=== PATIENT | female | born 1960 | race Caucasian/White ===

== ENCOUNTER 2018-05-31 02:03 | Outpatient (CLI) | payer OTHER, SELFPAY ==
[2018-05-31 07:53] LABS: ALT 32 U/L (12-78); AST 23 U/L (15-37); Albumin 3.9 g/dL (3.4-5.0); Alkaline Phosphatase 73 U/L (46-116); Anion Gap 7.5 mmol/L (3-11); BUN 13 mg/dL (7-18); Bilirubin, Total 0.5 mg/dL (0.2-1.0); CO2 28.5 mmol/L (21.0-32.0); CREATININE 0.84 mg/dL (0.55-1.02); Calcium 9.3 mg/dL (8.5-10.1); Chloride 105 mmol/L (98-107); Glucose 95 mg/dL (70-100); Potassium 3.9 mmol/L (3.5-5.1); Sodium 141 mmol/L (136-145); TSH (W/Ref FT4) 3.79 uIU/mL (0.358-3.74); Total Protein 7.7 g/dL (6.4-8.2)
[2018-05-31 08:10] LABS: FREE T4 0.95 ng/dL (0.76-1.46)
== END 2018-05-31 02:23 ==
DX: E78.5 Hyperlipidemia, unspecified (principal)
CPT/HCPCS: 36415; 80053; 84439; 84443

== ENCOUNTER 2018-12-31 13:36 | Emergency (ER) | payer OTHER, SELFPAY ==
[2018-12-31 13:40] VITALS: BP 183/79; PULSE 66; RESP 18; TEMP 36.7; O2SAT 96
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
== END 2018-12-31 14:49 | disposition home or self-care (01) ==
LOC: ER 14:15
PROVIDERS: Emergency Provider Physician Assistant
DX: S63.91XA Sprain of unspecified part of right wrist and hand, initial encounter (principal); V47.0XXA Car driver injured in collision with fixed or stationary object in nontraffic accident, initial encounter; I10 Essential (primary) hypertension
CPT/HCPCS: 29125; 99284; 73110; 73130; 99282; L3807

== ENCOUNTER 2019-07-11 01:53 | Outpatient (CLI) | payer OTHER, SELFPAY ==
[2019-07-11 11:14] LABS: ALT 34 U/L (14-59); AST 23 U/L (15-37); Albumin 4.2 g/dL (3.4-5.0); Alkaline Phosphatase 81 U/L (46-116); Anion Gap 8.7 mmol/L (3-11); BUN 15 mg/dL (7-18); Bilirubin, Total 0.8 mg/dL (0.2-1.0); CO2 28.3 mmol/L (21.0-32.0); CREATININE 1.02 mg/dL (0.55-1.02); Calcium 9.4 mg/dL (8.5-10.1); Calculated LDL 93 mg/dL; Chloride 102 mmol/L (98-107); Cholesterol 171 mg/dL (50-200); Estimated GFR 55.47 (mL/min/1.73m2); Glucose 95 mg/dL (70-100); HDL Cholesterol 64 mg/dL (40-60); Potassium 4.9 mmol/L (3.5-5.1); Sodium 139 mmol/L (136-145); TSH (W/Ref FT4) 3.35 uIU/mL (0.36-3.74); Triglyceride 73 mg/dL (30-150)
== END 2019-07-11 02:13 ==
DX: E03.9 Hypothyroidism, unspecified (principal); E78.5 Hyperlipidemia, unspecified; F32.9 Major depressive disorder, single episode, unspecified; F41.1 Generalized anxiety disorder; I10 Essential (primary) hypertension; R63.8 Other symptoms and signs concerning food and fluid intake; G47.00 Insomnia, unspecified
CPT/HCPCS: 36415; 80053; 80061; 84443

== ENCOUNTER 2020-07-02 09:19 | Outpatient (CLI) | payer OTHER, SELFPAY ==
--- NOTE | 2020-07-02 09:30 | DI.MAMMO_ITS ---
EXAM: MG MAMMO SCREENING CLINICAL HISTORY: screening, Z12.39 TECHNIQUE: Mammograms were interpreted according to the usual protocol including computer analysis w [place] system, tomosynthesis and C-view imaging. COMPARISON: FINDINGS: The breasts are of moderate density. Asymmetric density in the upper outer quadrant of the left [address] st is unchanged from prior examinations including January 2018. No mass or clumped microcalcification se en. IMPRESSION: No specific evidence of malignancy at this time. Routine screening examinations are suggested at yea rly intervals in this age group according to the ACS ACR guidelines. BI-RADS Category 1 - Negative Breast Density - Category B - Scattered areas of fibroglandular density
== END 2020-07-02 09:39 ==
DX: Z12.31 Encounter for screening mammogram for malignant neoplasm of breast (principal)
CPT/HCPCS: 77063; 77067

== ENCOUNTER 2020-07-02 12:28 | Outpatient (REF) | payer OTHER, SELFPAY ==
--- NOTE | 2020-07-02 07:30 | PAPFT_PTH ---
PATIENT: Ness Gonzalez LOC: [facility] U#:[id number] AGE/SX: 60/F ROOM: RE07/02/[address]: Suzette Veliz APRN : 1960 BED: DIS: 07/02/2020 SPEC #: [id number] RECD: 07/02/20 13:02 STATUS: WALT REVonda #: [id number] NONA: 07/02/20 07:[address]: Suzette Veliz DEPT: [facility] Cytology RECD BY: Jessica Hills Tissues: 1 - CX/ENDOCX FOR PAP SMEARS Procedures: PAP THIN PREP/[facility] Screening HPV DNA PROBE Comments: [id number] ([place])
== END 2020-07-02 12:48 ==
LOC: LBN 12:28
DX: Z12.4 Encounter for screening for malignant neoplasm of cervix (principal); Z11.51 Encounter for screening for human papillomavirus (HPV)
CPT/HCPCS: 88142; 87624

== ENCOUNTER 2021-06-24 02:38 | Outpatient (CLI) | payer OTHER, SELFPAY ==
[2021-06-24 09:35] LABS: ALT 26 U/L (14-59); AST 21 U/L (15-37); Albumin 4.5 g/dL (3.4-5.0); Alkaline Phosphatase 79 U/L (46-116); Anion Gap 7.1 mmol/L (3-11); BUN 12 mg/dL (7-18); Bilirubin, Total 0.5 mg/dL (0.2-1.0); CO2 30.9 mmol/L (21.0-32.0); CREATININE 1.1 mg/dL (0.55-1.02); Calcium 9.5 mg/dL (8.5-10.1); Calculated LDL 97 mg/dL (<100); Chloride 103 mmol/L (98-107); Cholesterol 183 mg/dL (<200); Estimated GFR 50.67 (mL/min/1.73m2); Glucose 94 mg/dL (74-106); HDL Cholesterol 69 mg/dL (40-60); Potassium 4.5 mmol/L (3.5-5.1); Sodium 141 mmol/L (136-145); TSH (W/Ref FT4) 3.91 uIU/mL (0.36-3.74); Total Protein 7.8 g/dL (6.4-8.2); Triglyceride 89 mg/dL (<150)
[2021-06-24 09:53] LABS: FREE T4 0.97 ng/dL (0.76-1.46)
== END 2021-06-24 02:39 | disposition home or self-care (01) ==
LOC: LBO 02:38
DX: Z00.00 Encounter for general adult medical examination without abnormal findings (principal); E03.9 Hypothyroidism, unspecified; E78.5 Hyperlipidemia, unspecified; I10 Essential (primary) hypertension; G47.00 Insomnia, unspecified
CPT/HCPCS: 36415; 80053; 80061; 84439; 84443

== ENCOUNTER 2021-07-29 01:15 | Outpatient (CLI) | payer OTHER, SELFPAY ==
--- NOTE | 2021-07-29 07:00 | DI.MAMMO_ITS ---
Exam(s) MAMMO SCREENING EXAM: MAMMO SCREENING CLINICAL HISTORY: screening,z12.39 TECHNIQUE: Mammograms were interpreted according to the usual protocol including computer analysis w How do you roll? CAD system, tomosynthesis and C-view imaging. COMPARISON: FINDINGS: The breasts are moderate density with fairly symmetrical distribution of fibroglandular tissue. No d ominant mass or clumped microcalcification is identified in either breast. The current examination i s compared with previous examinations including June 2020 and there has been no gross interval yamilet nge in appearance in comparison with the prior studies. IMPRESSION: No specific evidence of malignancy at this time. Routine screening examinations are suggested at yea rly intervals in this age group according to the ACS ACR guidelines. BI-RADS Category 1 - Negative Breast Density - Category B - Scattered areas of fibroglandular density
== END 2021-07-29 01:35 ==
DX: Z12.31 Encounter for screening mammogram for malignant neoplasm of breast (principal)
CPT/HCPCS: 77063; 77067

== ENCOUNTER 2022-01-13 02:12 | Outpatient (CLI) | payer OTHER, SELFPAY ==
[2022-01-13 13:00] LABS: TSH (W/Ref FT4) 3.53 uIU/mL (0.36-3.74)
== END 2022-01-13 02:13 | disposition home or self-care (01) ==
LOC: LOS 02:12
DX: E03.9 Hypothyroidism, unspecified (principal)
CPT/HCPCS: 36415; 84443

== ENCOUNTER → 2022-08-17 02:37 | Outpatient (CLI) | payer OTHER, SELFPAY ==
--- NOTE | 2022-08-17 06:45 | DI.MAMMO_ITS ---
Exam(s) MAMMO SCREENING EXAM: MAMMO SCREENING CLINICAL HISTORY: screening,z12.39. TECHNIQUE: Bilateral full field digital CC and MLO mammographic images were obtained with 3D tomosyn thesis and utilizing computer aided detection (CAD). COMPARISON: Prior mammograms were reviewed. FINDINGS: There has been no significant change in the appearance and distribution of the fibroglandular tissue. There are no CAD designations. There are no new spiculated masses nor malignant appearing microcalcification groups. There is no significant architectural distortion nor skin thickening-retraction. IMPRESSION: No radiographic evidence of malignancy. BI-RADS Category 1 - Negative Breast Density - Category A - Almost entirely fatty Breast density Category C or D implies that the patient has dense breast tissue. Dense breast tissue can make it harder to find cancer on a mammogram. Dense breast tissue is also associated with an incr eased risk of breast cancer. This information about the result of the mammogram report was provided to the patient to raise their awareness. Use this report when you speak with the patient about their risks for breast cancer, which includes their family history. At that time, you may recommend additional screening tests (Ultrasoun d or MRI) as these tests may add significant information. A negative radiographic report should not delay biopsy if a dominant or clinically suspicious mass is present. Up to ten percent of cancers are not identified on mammography. A negative report may reinforce clinical impression. Adenosis and dense breasts may obscure an underlying neoplasm. False positive reports average 6 to 10%. Patient will receive a letter notifying them of these results.
== END ==
PROVIDERS: PCP Nurse Practitioner Family; Visit Provider Nurse Practitioner Family
DX: Z12.31 Encounter for screening mammogram for malignant neoplasm of breast (principal)
CPT/HCPCS: 77063; 77067

== ENCOUNTER 2022-08-28 01:05 | Outpatient (CLI) | payer OTHER, SELFPAY ==
[2022-08-28 08:50] LABS: ALT 30 U/L (14-59); AST 26 U/L (15-37); Albumin 4.3 g/dL (3.4-5.0); Alkaline Phosphatase 85 U/L (46-116); Anion Gap 7.8 mmol/L (3-11); BUN 16 mg/dL (7-18); Bilirubin, Total 0.7 mg/dL (0.2-1.0); CO2 30.2 mmol/L (21.0-32.0); CREATININE 0.9 mg/dL (0.55-1.02); Calcium 9.4 mg/dL (8.5-10.1); Calculated LDL 88 mg/dL (<100); Chloride 100 mmol/L (98-107); Cholesterol 180 mg/dL (<200); Estimated GFR 72.28 (mL/min/1.73m2); Glucose 100 mg/dL (74-106); HDL Cholesterol 71 mg/dL (40-60); Potassium 3.7 mmol/L (3.5-5.1); Sodium 138 mmol/L (136-145); TSH (W/Ref FT4) 1.62 uIU/mL (0.36-3.74); Total Protein 8.3 g/dL (6.4-8.2); Triglyceride 106 mg/dL (<150)
== END 2022-08-28 01:06 | disposition home or self-care (01) ==
LOC: LBO 01:05
PROVIDERS: PCP Nurse Practitioner Family; Visit Provider Nurse Practitioner Family
DX: Z00.00 Encounter for general adult medical examination without abnormal findings (principal); I10 Essential (primary) hypertension; E78.5 Hyperlipidemia, unspecified; E03.9 Hypothyroidism, unspecified
CPT/HCPCS: 36415; 80053; 80061; 84443

== ENCOUNTER 2023-09-03 03:27 | Outpatient (CLI) | payer OTHER, SELFPAY ==
[2023-09-03 07:23] LABS: HCT 37.5 % (36.0-46.0); HGB 12.1 g/dL (11.2-15.7); MCH 28.9 pg (27.0-33.0); MCHC 32.3 % (32.0-36.0); MCV 90 fL (80-95); MPV 10.8 fL (8.0-11.0); Platelet Count 275 10^3/uL (130-400); RBC 4.19 10^6/uL (3.93-5.22); RDW 14.4 % (11.7-14.6); RDW-SD 46.5 fL; WBC 7.22 10^3/uL (4.4-10.8)
[2023-09-03 07:59] LABS: ALT 31 U/L (14-59); AST 23 U/L (15-37); Albumin 3.9 g/dL (3.4-5.0); Alkaline Phosphatase 76 U/L (46-116); BUN 21 mg/dL (7-18); Bilirubin, Total 0.5 mg/dL (0.2-1.0); CREATININE 0.9 mg/dL (0.55-1.02); Calcium 9.6 mg/dL (8.5-10.1); Calculated LDL 90 mg/dL (<100); Chloride 103 mmol/L (98-107); Cholesterol 179 mg/dL (<200); Estimated GFR 71.83 (mL/min/1.73m2); Glucose 106 mg/dL (74-106); HDL Cholesterol 69 mg/dL (40-60); Potassium 3.9 mmol/L (3.5-5.1); Sodium 140 mmol/L (136-145); TSH (W/Ref FT4) 4.45 uIU/mL (0.36-3.74); Total Protein 7.9 g/dL (6.4-8.2); Triglyceride 104 mg/dL (<150)
== END 2023-09-03 03:28 | disposition home or self-care (01) ==
PROVIDERS: PCP Nurse Practitioner Family; Visit Provider Nurse Practitioner Family
DX: Z00.00 Encounter for general adult medical examination without abnormal findings (principal); I10 Essential (primary) hypertension; E78.5 Hyperlipidemia, unspecified; E03.9 Hypothyroidism, unspecified; F32.89 Other specified depressive episodes
CPT/HCPCS: 36415; 80053; 80061; 85027; 84439; 84443

== ENCOUNTER → 2023-10-19 02:34 | Outpatient (CLI) | payer OTHER, SELFPAY ==
--- NOTE | 2023-10-19 07:30 | DI.US_ITS ---
APPROVED REPORT EXAM: Comprehensive 2D, Doppler, and color-flow Echocardiogram Patient Location: Out-Patient [place] Finisher: Candida Espinoza RDCS (AE) Indications: HX of STEMI, Murmur, SOB with exertion Other Information Study Quality: Adequate Conclusion Normal left ventricular wall thickness and chamber size. Ejection fraction is 55 to 60%. Wall motio n is normal. Diastolic function is normal for age Normal right ventricular size and systolic function Mildly dilated left atrium. Normal right atrial size Trileaflet aortic valve with trace regurgitation Normal mitral valve with mild regurgitation Normal tricuspid valve with mild regurgitation. Normal estimated right ventricular systolic pressure Wall motion Left Ventricle The left ventricle is normal size. The left ventricular systolic function is normal. The left ventric ular ejection fraction is within the normal range. There is normal left ventricular wall thickness. T here is normal LV segmental wall motion. There is no ventricular septal defect visualized. LVEF is 57 %. Right Ventricle The right ventricle is normal size. The right ventricular systolic function is normal. Atria Left atrium is mildly dilated. The right atrium size is normal. The interatrial septum is intact with no evidence for an atrial septal defect. Aortic Valve The aortic valve is normal in structure. Aortic valve is trileaflet. There is no aortic valvular sten osis. Trace aortic regurgitation. Mitral Valve The mitral valve is normal in structure. No evidence of mitral valve stenosis. Mild mitral regurgitat ion. Tricuspid Valve The tricuspid valve is normal in structure. There is no tricuspid valve stenosis. Mild tricuspid reg urgitation. The RVSP is 28.8_ mmHg. Pulmonic Valve Pulmonic valve is not well visualized. There is no pulmonic valvular stenosis. Trace to mild pulmonic regurgitation. Great Vessels The aortic root is normal in size. The ascending aorta is normal in size. Aortic arch is normal in ca liber. IVC is normal in size and collapses >50% with inspiration. Pericardium There is no pericardial effusion. 2D Dimensions IVSD d PLAX 0.87 cm F: 0.6-1.0 Ao Root d 2.85 cm F: 2.7 - 3.3 LVPW d PLAX 0.85 cm F: 0.6 - 1.0 Ao Asc Diam d 3.17 cm F: 2.3 - 3.1 LVID d PLAX 4.80 cm F: 3.8 - 5.2 LVDs 3.34 cm F: 2.2 - 3.5 LV EF Teichholz 57.6 % FS 30.32 % LV EDV (Teich) 107.4 mL LV ESV (Teich) 45.5 mL M-Mode TAPSE 2.71 cm (M/F) >1.7 Auto EF LV EDV A4C 130.3 mL LV EDV A2C 179.1 mL LV EDV BP 156.6 mL LV ESV A4C 54.9 mL LV ESV A2C 78.0 mL LV ESV BP 66.0 mL LVEF(%) A4C 57.8 % LVEF(%) A2C 56.4 % LVEF(%) BP 57.8 % LV SV A4C 75.4 ml LV SV A2C 101.1 ml LV SV BP 90.6 ml LV CO A4C 4.0 L/min LV CO A2C 5.6 L/min LV CO BP 4.8 L/min HR A4C 53.26 BPM HR A2C 55.82 BPM LV EDV Index (BP) LV Strain Long Pk Overal Avg (s) 18.68 LA Volume LA Length A4C 5.8 cm LA Length A2C 5.7 cm LA Area A4C s 23.53 cm2 LA Area A2C s 24.70 cm2 LA Vol A4C A-L 81.14 mL LA Vol A2C A-L 90.53 mL LA Vol Biplane A-L 86.2 mL LA Vol/BSA A4C A-L LA Vol/BSA A2C A-L LA Vol/BSA BP A-L 71.3 mL/m2 LA Vol A4C MOD 71.7 mL LA Vol A2C MOD 85.6 mL LA Vol BP MOD 78.1 mL RA Volume RA Area A4C 13.0 cm2 RA ESV A4C (A-L) 27.9mL RA Vol/BSA A4C A-L RA Length A4C 5.1 cm RA ESV A4C (MOD) 27.5mL LV Diastology MV E' medial 0.077 (>0.07 m/s) MV E Vmax 0.75 (0.4-1.3 m/s) MV E/E' MED 9.74 (<14) MV A Vmax 0.85 (0.4-1.3 m/s) MV E' lateral 0.080 (>0.1 m/s) E/A Ratio 0.9 MV E/E' LAT 9.31 (<14) MV E' Average 0.079 m/s MV E/E'(average) 9.52 Aortic Valve AoV Vmax 1.72 m/s LVOT Vmax 1.03 m/s AoV Peak Grad 47.5 mmHg LVOT Peak Grad 4.3 mmHg AoV Area (Vmax) 1.65 cm2 LVOT VTI 0.297 m AoV VTI 0.452 m LVOT Mean Grad 2.5 mmHg AoV Mean Izaiah. 1.18 m/s LVOT SV 81.54 mL AoV Mean Grad 6.3 mmHg LVOT Diam s 1.85 cm AoV Area (VTI) 1.80 cm2 AV Regurg Peak Gr. 83.30 mmHg Velocity Ratio 0.60 AR Decel [place] 2.0m/sec2 AR DT 2252 msec AR PHT 653 msec AR Vmax 4.56 m/s Mitral Valve MV DT 187 (160-240 msec) MV Vmax TIPS 0.86 m/s MV Mean Grad 1.4 (<2mmHg) MV VTI 0.395 m Pulmonary Valve PV Vmax 0.87 (0.5-1.5 m/s) RVOT Vmax 0.46 m/s PV Peak Grad 3.0 mmHg RVOT Peak Gr. 0.9 mmHg PV Mean Izaiah 0.66 m/s RVOT VTI 0.119 m PV Mean Grad 1.9 mmHg RVOT Mean Gr. 0.5 mmHg Tricuspid Valve RA Pressure 3.00 mmHg TR Vmax 2.54 m/s TV S' 0.12 m/s TR Peak Grad 25.8 mmHg RVSP (TR) 28.8 mmHg
== END ==
PROVIDERS: PCP Nurse Practitioner Family; Visit Provider Nurse Practitioner Family
DX: I21.3 ST elevation (STEMI) myocardial infarction of unspecified site (principal); R01.1 Cardiac murmur, unspecified; R06.09 Other forms of dyspnea
CPT/HCPCS: 93306

== ENCOUNTER 2023-10-22 12:46 | Outpatient (CLI) | payer OTHER, SELFPAY ==
--- NOTE | 2023-10-22 12:45 | RT.EKG_ITS ---
APPROVED REPORT Exam: Resting ECG Reason for Exam: baseline Patient Location: O HR:65 bpm ECG Measurements Heart Rate 65 AXIS AZ 204 P 35 QRSd 127 QRS 14 QT 417 T 16 QTc 434 Conclusion Sinus rhythm...normal P axis, V-rate 50- 99 Normal Electrocardiogram
== END 2023-10-22 12:47 | disposition home or self-care (01) ==
LOC: DI.CARD 12:47
PROVIDERS: PCP Nurse Practitioner Family; Visit Provider Internal Medicine Cardiovascular Disease
DX: R01.1 Cardiac murmur, unspecified (principal)
CPT/HCPCS: 93010

== ENCOUNTER 2023-12-16 05:28 | Outpatient (CLI) | payer OTHER, SELFPAY ==
[2023-12-16 12:43] LABS: TSH (W/Ref FT4) 4.85 uIU/mL (0.36-3.74)
[2023-12-16 13:13] LABS: FREE T4 0.93 ng/dL (0.76-1.46)
== END 2023-12-16 05:29 | disposition home or self-care (01) ==
LOC: LOS 05:28
PROVIDERS: PCP Nurse Practitioner Family; Visit Provider Nurse Practitioner Family
DX: E03.9 Hypothyroidism, unspecified (principal)
CPT/HCPCS: 36415; 84439; 84443

== ENCOUNTER 2024-01-21 09:39 | Emergency (ER) | payer OTHER, SELFPAY ==
[2024-01-21 09:48] VITALS: BP 262/82; PULSE 66; RESP 18; TEMP 36.6; O2SAT 100
--- NOTE | 2024-01-21 10:00 | DI.RAD_ITS ---
Exam(s) XR KNEE LT 3V AP,LAT,FEROZ EXAM: XR KNEE LT 3V AP,LAT,FEROZ CLINICAL HISTORY: knee pain, medial,strain/ popping sensation. TECHNIQUE: 2D digital imaging was performed. Three images were obtained. AP, AP tunnel and lateral views were obtained. COMPARISON: No exams were available for comparison FINDINGS: BONES: There are stable post operative changes of a left total knee replacement present. No fracture or dislocation. JOINTS: The orthopedic hardware is in good position. No evidence of hardware loosening. SOFT TISSUE: Normal. IMPRESSION: Stable left total knee replacement. DATA REPOSITORY: RADIATION DOSE DELIVERED:
[2024-01-21 10:03] VITALS: BP 174/51
[2024-01-21 10:09] VITALS: BP 174/51
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
[2024-01-21 12:03] VITALS: BP 170/103; PULSE 59; RESP 16; O2SAT 98
== END 2024-01-21 12:04 | disposition home or self-care (01) ==
PROVIDERS: Emergency Provider Physician Assistant; PCP Nurse Practitioner Family
DX: M25.562 Pain in left knee (principal); M23.92 Unspecified internal derangement of left knee; Z96.652 Presence of left artificial knee joint; X58.XXXA Exposure to other specified factors, initial encounter
CPT/HCPCS: 73562; 99283

== ENCOUNTER → 2024-03-01 06:58 | Outpatient (CLI) | payer OTHER, SELFPAY ==
--- NOTE | 2024-03-01 06:45 | DI.CT_ITS ---
Exam(s) CT LOWER EXTREMITY LT WO EXAM: CT LOWER EXTREMITY LT WO CLINICAL HISTORY: PAINFUL TOTAL KNEE,t84.84XA,Z96.652. TECHNIQUE: Imaging Protocol: Axial computed tomography images with coronal and sagittal reformatted images were created and reviewed. CONTRAST MATERIAL: Noncontrast COMPARISON: CR XR KNEE LT 3V AP,LAT,FEROZ from 01/21/2024 FINDINGS: Bones: A knee prosthesis is in place which creates artifact. The alignment appears satisfactory. No abnormal surrounding bony lucencies. Exostosis noted from posterior aspect of femoral condyles. Ad ditional bony density seen at posterior joint. This is better seen on plain films. No cellulitic or osteomyelitic changes are identified. No lytic or sclerotic lesions are identified. Joints: No effusion visible.. Soft Tissues: Normal. IMPRESSION: No evidence of loosening of the knee prosthesis. RADIATION DOSE DELIVERED: 312.9mGy.cm Total DLP DATA REPOSITORY: All CT scans at this facility are submitted to the National Radiology Data Registry (NRDR) Dose Index Registry (DIR) with the [employer] (ACR). RADIATION OPTIMIZATION: All CT scans at this facility use at least one of these dose optimization te chniques: automated exposure control; mA and/or kV adjustment per patient size (includes targeted exa ms where dose is matched to clinical indication); or iterative reconstruction.
== END ==
PROVIDERS: PCP Nurse Practitioner Family; Visit Provider Student in an Organized Health Care Education/Training Program
DX: T84.84XA Pain due to internal orthopedic prosthetic devices, implants and grafts, initial encounter (principal); Z96.652 Presence of left artificial knee joint
CPT/HCPCS: 73700

== ENCOUNTER 2024-03-15 08:22 | Day surgery (SDC) | payer OTHER, SELFPAY ==
[2024-03-15] VITALS (28 sets, daily range): BP systolic 136–203; BP diastolic 60–122; PULSE 50–62; RESP 8–19; TEMP 36.2–36.6; O2SAT 84–100; BMI 44.8
[2024-03-15] MEDS: Celecoxib 200 MG CAP 400 MG PO (08:46)
[2024-03-15] MEDS: Gabapentin 300 MG CAP PO (08:46)
[2024-03-15] MEDS: Acetaminophen 500 MG TAB 1000 MG PO (08:47)
[2024-03-15] MEDS: Lactated Ringers 1,000 ML 80 ML IV (09:07)
--- NOTE | 2024-03-15 09:57 | W.ANESPRE ---
General Info Date of Service Date Performed: 03/15/24 Height: 5 ft 7 in Weight: 129.8 kg Body Mass Index (BMI): 44.8 Surgical Procedure: Operation Date: 03/15/24 11:55 Proposed Procedure Side Surgeon p Knee Arthroscopy Synovectomy, Loose Body Removal Left Dilan Huddleston MD Meds Allergies and Home Medications Allergies Allergy/AdvReac Type Severity Reaction Status Date / Time loperamide Allergy Unknown SKIN RASH Verified 03/15/24 08:40 G.DOMESTICUS DUST MITE Allergy Unknown cough Uncoded 03/15/24 08:40 Home Medication Medication Instructions Recorded acetaminophen 325 mg tablet 650 mg PO Q4H PRN 02/15/15 multivitamin-ferrous 1 tab-cap PO DAILY 02/15/15 fumarate-folic acid 18 mg-400 mcg tablet (Centrum Complete) aspirin 325 mg tablet 325 mg PO DAILY 03/05/15 naproxen 375 mg tablet,delayed 375 mg PO BID #180 tabs 02/11/23 release (EC-Naproxen) sertraline 100 mg tablet 150 mg (1.5 x 100 mg) PO DAILY 10/25/23 #135 tabs atorvastatin 40 mg tablet 40 mg PO DAILY #90 tab-caps 11/01/23 pantoprazole 40 mg tablet,delayed 40 mg PO DAILY #90 tab-caps 11/01/23 release losartan 50 mg-hydrochlorothiazide 1 tab PO DAILY #90 tabs 12/16/23 12.5 mg tablet metoprolol tartrate 25 mg tablet 25 mg PO BID #180 tab-caps 12/16/23 tramadol 50 mg tablet 50 mg PO TID PRN pain #30 tabs 01/27/24 levothyroxine 75 mcg tablet 75 mcg PO DAILY #90 tab-caps 03/02/24 Current Visit Medications: Current Medications Generic Name Dose Route Start Last Admin Trade Name Freq PRN Reason Stop Dose Admin Acetaminophen 1,000 mg 03/15/24 06:00 03/15/24 08:47 Acetaminophen 500 Mg Tab PO 03/15/24 23:59 1,000 mg PREOP SUSAN Administration Celecoxib 400 mg 03/15/24 06:00 03/15/24 08:46 Celecoxib 200 Mg Cap PO 03/15/24 23:59 400 mg PREOP SUSAN Administration Gabapentin 300 mg 03/15/24 06:00 03/15/24 08:46 Gabapentin 300 Mg Cap PO 03/15/24 23:59 300 mg PREOP SUSAN Administration Ringer's Solution 1,000 mls @ 80 mls/hr 03/15/24 06:00 03/15/24 09:07 IV 03/15/24 23:59 80 mls/hr INFUSION SUSAN Administration Cefazolin Sodium 3,000 mg/ 100 mls @ 200 mls/hr 03/15/24 06:00 Sodium Chloride IVPB 03/15/24 23:59 PREOP SUSAN Tranexamic Acid/Sodium Chloride 1,000 mg in 100 mls @ 600 mls/hr 03/15/24 06:00 IVPB 03/15/24 23:59 PREOP SUSAN IV Miscellaneous Supplies 1 each 03/15/24 06:00 Iv Access IV 03/15/24 23:59 DIRECTED SUSAN Sodium Chloride 0 ml 03/15/24 06:00 Normal Saline Flush 10 Ml Syr IV 03/15/24 23:59 PRN PRN Sodium Chloride 0 ml 03/15/24 06:00 Normal Saline 10 Ml Vial IJ 03/15/24 23:59 DIRECTED PRN Sterile Water 0 ml 03/15/24 06:00 Water,Injection,Sterile 10 Ml Vial IJ 03/15/24 23:59 DIRECTED PRN PFSH Active Problems Active Problems: Problem Status Onset Code Intra-articular loose body M24.00 Painful total knee replacement, left T84.84XA, Z96.652 Tremor of both hands R25.1 Arthralgia M25.50 Encounter for annual physical exam Z00.00 Anxiety state 06/13/12 F41.1 Chronic rhinitis 06/13/12 J31.0 Depressive disorder 06/13/12 F32.9 Diverticulosis K57.90 Essential hypertension 06/13/12 I10 History of partial thyroidectomy Z98.890 Hyperlipidemia 06/13/12 E78.5 Hypothyroidism E03.9 Increased body mass index R63.8 Low grade squamous intraepithelial lesion (LGSIL) 08/05/03 Osteoarthritis of knee M17.10 Rosacea L71.9 Spinal stenosis at L4-L5 level M48.061 Medical History Medical History Closed fracture of ankle (08/05/91) Heart murmur Tobacco dependence in remission STEMI (ST elevation myocardial infarction) Chest pain 2014 STEMI (ST elevation myocardial infarction) 2014 Hypothyroidism Hx of hyperlipidemia HTN (hypertension) GERD (gastroesophageal reflux disease) Depression Anxiety Surgical History Surgical History History of arthroscopy of knee History of bilateral ligation of fallopian tubes Status post total bilateral knee replacement Ligation of fallopian tube Replacement of total knee joint B/L Thyroid (~1998) UNILAT THYROID LOBECTOMY; left Spinal Fusion L4-L5 Procedures Left wrists and thumb Broken Left Ankle Plates and Screws Arthroplasty of knee (~2007) left; medial meniscus; DJD Tobacco Smoking/Tobacco Use Status: Former Tobacco Use Passive smoking exposure: Yes Second hand exposure: Yes Alcohol Alcohol Intake: current Alcohol intake frequency: holidays/special occasions only Alcohol type: hard liquor Substance Use Substance use: Never Substance use type: does not use Counseling provided: none Vital Signs and Lab Results Vital Signs Most Recent Vital Signs in EMR: Most Recent Vital Signs Temp Pulse Resp BP Pulse Ox 36.3 C L 62 16 182/83 H 98 03/15/24 08:30 03/15/24 08:30 03/15/24 08:30 03/15/24 08:30 03/15/24 08:30 Lab Results Blood Type / Crossmatch: No Data to Display Complete Blood Count: No Data to Display Complete Metabolic Panel: No Data to Display Liver Function Panel: No Data to Display Coagulation Panel: No Data to Display Cardiac Panel: No Data to Display Arterial Blood Gas: No Data to Display Venous Blood Gas: No Data to Display Pancreas Panel: No Data to Display Thyroid Panel: No Data to Display Infectious Disease: No Data to Display Blood Cultures: No Data to Display Toxicology Panel: No Data to Display Imaging and Studies Imaging and Studies Study information below may be from another EMR and interpreted by another provider. Please see original notes in EMR for more complete details. EKG Summary: EKG PATIENT NAME: Ness Gonzalez UNIT #: [id number] ORDERING PROVIDER: Zhou Thurman M.D. PRIMARY CARE PROVIDER: LINDA MOLINA NP DATE/TIME OF SERVICE: 10/22/23 1243 : 1960 PERFORMING LOCATION: .CARD APPROVED REPORT Exam: Resting ECG Reason for Exam: baseline Patient Location: O HR:65 bpm ECG Measurements Heart Rate 65 AXIS FL 204 P 35 QRSd 127 QRS 14 QT 417 T16 QTc 434 Conclusion Sinus rhythm...normal P axis, V-rate 50- 99 Normal Electrocardiogram <Electronically signed by ZHOU THURMAN MD in OV> E-Sign Date: 10/22/23 E-Sign Time: 1300 Echocardiogram Summary: Patient Name: Ness Gonzalez Unit #: [id number] Loc: Ordering Provider: Linda Molina NP Status: [facility] Primary Care Provider: Linda Molina NP Date of Exam: 10/19/23 Sex: F Admission Date: 10/19/23 : 1960 Age: 63 APPROVED REPORT EXAM: Comprehensive 2D, Doppler, and color-flow Echocardiogram Patient Location: Out-Patient Talent Acquisition Coordinator: Cadnida Espinoza RDCS (AE) Indications: HX of STEMI, Murmur, SOB with exertion Other Information Study Quality: Adequate Conclusion Normal left ventricular wall thickness and chamber size. Ejection fraction is 55 to 60%. Wall motion is normal. Diastolic function is normal for age Normal right ventricular size and systolic function Mildly dilated left atrium. Normal right atrial size Trileaflet aortic valve with trace regurgitation Normal mitral valve with mild regurgitation Normal tricuspid valve with mild regurgitation. Normal estimated right ventricular systolic pressure Wall motion Left Ventricle The left ventricle is normal size. The left ventricular systolic function is normal. The left ventricular ejection fraction is within the normal range. There is normal left ventricular wall thickness. There is normal LV segmental wall motion. There is no ventricular septal defect visualized. LVEF is 57%. Right Ventricle The right ventricle is normal size. The right ventricular systolic function is normal. Atria Left atrium is mildly dilated. The right atrium size is normal. The interatrial septum is intact with no evidence for an atrial septal defect. Aortic Valve The aortic valve is normal in structure. Aortic valve is trileaflet. There is no aortic valvular stenosis. Trace aortic regurgitation. Mitral Valve The mitral valve is normal in structure. No evidence of mitral valve stenosis. Mild mitral regurgitation. Tricuspid Valve The tricuspid valve is normal in structure. There is no tricuspid valve stenosis. Mild tricuspid regurgitation. The RVSP is 28.8_ mmHg. Pulmonic Valve Pulmonic valve is not well visualized. There is no pulmonic valvular stenosis. Trace to mild pulmonic regurgitation. Great Vessels The aortic root is normal in size. The ascending aorta is normal in size. Aortic arch is normal in caliber. IVC is normal in size and collapses >50% with inspiration. Pericardium There is no pericardial effusion. 2D Dimensions IVSD d PLAX 0.87 cm F: 0.6-1.0Ao Root d 2.85 cm F: 2.7 - 3.3 LVPW d PLAX 0.85 cm F: 0.6 - 1.0Ao Asc Diam d 3.17 cm F: 2.3 - 3.1 LVID d PLAX 4.80 cm F: 3.8 - 5.2 LVDs 3.34 cm F: 2.2 - 3.5 LV EF Teichholz 57.6 % FS30.32 % LV EDV (Teich)107.4 mL LV ESV (Teich)45.5 mL M-Mode TAPSE 2.71 cm (M/F) >1.7 Auto EF LV EDV V6M454.3 mLLV EDV Z6F978.1 mLLV EDV BP156.6 mL LV ESV A4C54.9 mLLV ESV A2C78.0 mLLV ESV BP66.0 mL LVEF(%) A4C57.8 %LVEF(%) A2C56.4 %LVEF(%) BP57.8 % LV SV A4C75.4 mlLV SV U9S583.1 mlLV SV BP90.6 ml LV CO A4C4.0 L/minLV CO A2C5.6 L/minLV CO BP4.8 L/min HR A4C53.26 BPMHR A2C55.82 BPMLV EDV Index (BP) LV Strain Long Pk Overal Avg (s) 18.68 LA Volume LA Length A4C5.8 cmLA Length A2C5.7 cm LA Area A4C s 23.53 cm2LA Area A2C s 24.70 cm2 LA Vol A4C A-L81.14 mLLA Vol A2C A-L90.53 mLLA Vol Biplane A-L86.2 mL LA Vol/BSA A4C A-LLA Vol/BSA A2C A-LLA Vol/BSA BP A-L 71.3 mL/m2 LA Vol A4C MOD71.7 mLLA Vol A2C MOD85.6 mLLA Vol BP MOD78.1 mL RA Volume RA Area A4C13.0 cm2RA ESV A4C (A-L)27.9mLRA Vol/BSA A4C A-L RA Length A4C5.1 cmRA ESV A4C (MOD)27.5mL LV Diastology MV E' medial0.077 (>0.07 m/s)MV E Vmax 0.75 (0.4-1.3 m/s) MV E/E' MED9.74 (<14)MV A Vmax 0.85 (0.4-1.3 m/s) MV E' lateral0.080 (>0.1 m/s)E/A Ratio 0.9 MV E/E' LAT9.31 (<14) MV E' Average0.079 m/s MV E/E'(average)9.52 Aortic Valve AoV Vmax1.72 m/sLVOT Vmax 1.03 m/s AoV Peak Grad47.5 mmHgLVOT Peak Grad 4.3 mmHg AoV Area (Vmax)1.65 ip6CKKS VTI0.297 m AoV VTI0.452 mLVOT Mean Grad 2.5 mmHg AoV Mean Izaiah.1.18 m/sLVOT SV 81.54 mL AoV Mean Grad6.3 mmHgLVOT Diam s 1.85 cm AoV Area (VTI)1.80 cm2AV Regurg Peak Gr.83.30 mmHg Velocity Ratio 0.60 AR Decel Slope2.0m/sec2 AR DT 2252 msec AR PHT 653 msec AR Vmax 4.56 m/s Mitral Valve MV DT 187 (160-240 msec) MV Vmax TIPS 0.86 m/s MV Mean Grad 1.4 (<2mmHg) MV VTI 0.395 m Pulmonary Valve PV Vmax 0.87 (0.5-1.5 m/s)RVOT Vmax 0.46 m/s PV Peak Grad 3.0 mmHgRVOT Peak Gr.0.9 mmHg PV Mean Vel0.66 m/sRVOT VTI0.119 m PV Mean Grad 1.9 mmHgRVOT Mean Gr.0.5 mmHg Tricuspid Valve RA Pressure 3.00 mmHgTR Vmax 2.54 m/s TV S'0.12 m/sTR Peak Grad 25.8 mmHg RVSP (TR) 28.8 mmHg Ordered By: Linda Molina NP CC: Dictated By: Zhou Thurman M.D. 10/19/23 1044 <Electronically signed by Zhou Thurman M.D. in OV> 10/19/23 1130 Transcribed By: Zhou Thurman MD 10/19/23 1044 This is privileged, confidential information intended only for the provider named. Any use or distribution by any person other than this provider is strictly prohibited. If you receive this report in error, please notify us immediately at [phone] and return the original report to us at the address above. Thank-you. Anesthesia Assessment and Plan Anesthesia History Personal History: No History of Anesthesia Complications Family History: No Family History of Anesthesia Complications Exercise Tolerance Exercise Tolerance: Metabolic Equivalents>4 Pertinent Negatives Pertinent Negatives: No Symptoms of GERD, No Major Cardiovascular Symptoms or Complaints, No Major Pulmonary Symptoms or Complaints and No History of CVA/TIA Cardiac & Pulmonary Exam Cardiac Exam: Normal S1/S2 Heart Sounds Pulmonary Exam: Clear Bilateral Breath Sounds Implantable Cardiac Device Does patient have a Pacemaker or an ICD?: No Airway Exam Known Difficult Airway: No Mallampati Class: 2 Mouth Opening: Normal (> 3cm) Thyromental Distance: Greater than 3 cm Neck Range of Motion: Full ROM Neck Circumference: Normal Teeth Condition: Normal Dentition ASA Classification ASA Score: ASA 3 Emergency Case?: No NPO Status NPO Status: NPO Clears >2 hours, Solids >8 hours Anesthesia Plan Resuscitation Status: Full Code Anesthesia Technique: General Anesthesia Airway Planned: LMA Monitors Used: Standard Monitors
[2024-03-15] MEDS: ceFAZolin 3,000 MG in Normal Saline 100 ML 200 MG IVPB (11:23)
--- NOTE | 2024-03-15 11:28 | W.PM.DSUDISC ---
Date of service: 03/15/24 Time of Service: 11:28 Discharge Plan Disposition Patient Disposition: Home Condition: Good Discharge Details Reason For Visit: L knee arthroscopy Attending Provider: Dilan Huddleston Primary Care Provider: Linda Sullivan Home Meds and New Rx's Prescriptions: New hydrocodone-acetaminophen 5-325 mg tablet 1 tab PO Q6H PRN (Reason: pain) Qty: 6 0RF acetaminophen 500 mg tablet 1,000 mg PO TID Qty: 90 0RF Continued Centrum Complete 1 EACH tablet 1 tab-cap PO DAILY aspirin 325 MG tablet 325 mg PO DAILY naproxen [EC-Naproxen] 375 mg tablet,delayed release (DR/EC) 375 mg PO BID Qty: 180 0RF sertraline 100 mg tablet 150 mg PO DAILY Qty: 135 3RF Rx Instructions: 1 1/2 tabs daily atorvastatin 40 mg tablet 40 mg PO DAILY Qty: 90 3RF pantoprazole 40 mg tablet,delayed release (DR/EC) 40 mg PO DAILY Qty: 90 3RF metoprolol tartrate 25 mg tablet 25 mg PO BID Qty: 180 4RF Rx Instructions: 1 TAB TWICE DAILY losartan-hydrochlorothiazide 50-12.5 mg tablet 1 tab PO DAILY Qty: 90 3RF levothyroxine 75 mcg tablet 75 mcg PO DAILY Qty: 90 3RF Discontinued acetaminophen 325 MG tablet 650 mg PO Q4H PRN tramadol 50 mg tablet 50 mg PO TID MDD 3 tablets PRN (Reason: pain) Qty: 30 0RF Discharge Instructions Stand Alone Forms: Anesthesia Discharge Inst., Matilde Ingram ([facility]), [facility] Knee Arthroscopy Referrals: Dilan Huddleston MD [ [facility] STAFF PHYSICIAN] - 03/27/24 3:15 pm Equipment/Supplies: Partial Weight Bearing Crutches Activity:: Activity as Tolerated Remove Dressings/Wound Care:: 72 hours Shower/Bathe:: 72 hours Diet:: As Tolerated Discharge Orders Discharge Orders: Discharge Order (Routine); Ordered 03/15/24 Ordered By: Malik Cortes DS: Diagnosis Discharge Diagnosis (1) Painful total knee replacement, left: Status: Acute (2) Intra-articular loose body: Status: Acute
[2024-03-15] MEDS: TRANEXAMIC ACID/SOD. CHL. 1,000 MG/100 ML BAG 600 MG IVPB (11:29)
[2024-03-15] MEDS: Bupivacaine 0.5% Pres-Free 30 ML VIAL (11:31)
[2024-03-15] MEDS: EPINEPHrine 10 MG/10 ML ML (11:42)
[2024-03-15] MEDS: Normal Saline 10 ML VIAL IJ (12:51)
[2024-03-15] MEDS: HYDROmorphone 2 MG/ML SYR IVP ×3 (12:51→13:14)
--- NOTE | 2024-03-15 14:08 | W.PM.OP ---
Date of service: 03/15/24 Time of Service: 12:30 Operative Note Operative Note PRE-OP DIAGNOSIS: Impingement - Left Knee Replacement POST-OP DIAGNOSIS: same PROCEDURE: Arthroscopic Synovectomy of 3 Compartments with Ostectomy - Left Knee SURGEON: Dilan Huddleston ANESTHESIA TYPE: General LMA/ETT Refer to Anesthesia Record ESTIMATED BLOOD LOSS: 10 PATHOLOGY: none sent COMPLICATIONS: None Patient was transported to: PACU Patient's condition: stable Indications: I have seen Ness in clinic for symptoms of impingement and suspected loose body of the knee following knee replacement surgery. She was having significant disability due to a locking and catching sensation about the knee. Therefore, I recommended arthroscopic intervention with likely loose body removal and synovectomy. I reviewed the risks of the procedure to include, but not limited to, bleeding, infection, pain, continued stiffness, recurrence, blood clot. Despite these risks, the patient elected to proceed. Findings: There was impinging tissues seen primarily medially but also somewhat laterally. There is a pedunculated prominence of bone within the notch which was impinging upon the polyethylene. Procedure Description: Ness was greeted in the preoperative holding area where the correct side was identified and marked. The consent was reviewed with the patient and signed. The history and physical was updated. All questions were answered. She was taken back to the operating room. The patient was placed into the supine position on the operating room table. All bony prominences were well padded. Prophylactic antibiotics in the form of Cefazolin were administered. The leg was placed into a pneumatic leg soler, [id number]. A standard lateral portal was made at the lateral border of the patella tendon in line with the inferior pole of the patella, soft spot. The skin and deep tissue was incised sharply and the blunt trochar was inserted atraumatically. At this point had visualization of the femoral component. A superolateral portal was then established with spinal needle localization just superior and lateral to the patella. A knife was taken down through the skin and soft tissue to enter the knee joint. Starting in the superior compartment above the femoral component and anterior to the femur I released all scarring between the anterior femoral synovium and the overlying extensor mechanism. This was taken through all of any noticeable scar tissue until the superior patellar pouch was fully released and mobile. This resection was carried out mostly with electrocautery as well as shaver. Once this was released fully from lateral to medial superiorly I then continue working down the lateral gutter. All scar tissue in the lateral gutter was released so there is normal space and movement between the capsular tissues and the edge of the femoral component and femur. This was taken down through the lateral gutter such that I was able to identify the polyethylene to its posterior corner. Once again, all scar tissue in this area was resected so the polyethylene was easily visible and there is no interposed tissue in the back or the polyethylene was identified. I think continue to work anteriorly. To continue the synovectomy from the lateral compartment to the anterior compartment into the medial compartment, I placed a medial portal under spinal needle localization. Once this was in place it became another working portal and I continued the synovectomy through the anterior compartment to the medial compartment. Once again, I freed up the medial gutter so I was able to visualize the polyethylene from the anterior posterior margins. Adhesions between the capsule and the femur were released. This was continued up the medial gutter until it met up with the releases performed previously in the superior compartment. There is notable scar tissue seen around the patella. The patella itself had an irregular surface given its unresurfaced position. There was an abundant amount of soft tissue in the medial gutter region. With a medial portal established I continue to work medially. I then put the camera into the medial portal to look. I was unable to see any loose piece of bone despite what the CT scan had seemingly showed. I took the knee through range of motion with the camera and did not see any impinged tissue but I did see a pedunculated bony mass within the notch over the medial side. Therefore, I took a set of osteotomes and through the medial portal, viewing from lateral, resected this bony fragment. It was also shaved down and smoothed with electrocautery and shaver. I did a second look within the knee from both medial and lateral portals looking for any other impinging tissue was unable to find any. I removed the equipment from the knee and took the knee through range of motion multiple times was unable to replicate her preoperative symptoms. I once again put the camera back inside the knee and was unable to see anything else at this time. The arthroscope was brought back into the suprapatellar pouch and the leg was in full extension. The knee was thoroughly irrigated with the arthroscopic fluid on high flow and pressure. Inflow was stopped and excess fluid was removed. The wounds were closed with 4-0 Nylon. 0.25% bupivacaine was injected around the portal sites and into the knee. The wounds were dressed with Xeroform, 4x4 gauze, ABD pad, Kerlix and an CAIO wrap. A cryo-cuff was applied. The patient tolerated the procedure well and was returned to the PACU in a stable condition suffering no known complication..
--- NOTE | 2024-03-15 14:12 | W.ANESPOSTOP ---
Postoperative Evaluation Date, Time and Location Date Performed: 03/15/24 Time Performed: 14:12 Patient Location: Day Surgery Unit Vital Signs Most Recent Imported Vital Signs: Most Recent Vital Signs Temp Pulse Resp BP Pulse Ox 36.2 C L 50 L 16 161/85 H 95 03/15/24 13:39 03/15/24 13:39 03/15/24 13:39 03/15/24 13:39 03/15/24 13:39 Pain Score Most Recent Pain Score: Most Recent Pain Score Pain Level 3 03/15/24 13:39 Assessment Mental Status: Awake (Alert & Oriented to Patient Baseline) Airway and Respiratory Function: Patent airway with normal (patient baseline) respiratory exam Cardiovascular Function: Hemodynamically Stable Hydration Status: Adequately Hydrated Nausea & Vomiting: No Nausea or Vomiting Pain: Pain is tolerable per patient (on the line) Peripheral Nerve Block: Patient did not receive a nerve block
[2024-03-15] MEDS: HYDROcodone 5/Acetaminophen 325 TAB PO (14:19)
== END 2024-03-15 15:18 | disposition home or self-care (01) ==
PROVIDERS: PCP Nurse Practitioner Family; Visit Provider Student in an Organized Health Care Education/Training Program
PROC: (CPT 29870; principal; 2024-03-15 11:45)
DX: T84.84XA Pain due to internal orthopedic prosthetic devices, implants and grafts, initial encounter (principal); Z96.652 Presence of left artificial knee joint; M89.9 Disorder of bone, unspecified
CPT/HCPCS: 29876; J0665; J0690; J1100; J1170; J2001; J2405; J2704; J3010

== ENCOUNTER 2024-11-20 01:25 | Outpatient (CLI) | payer OTHER, SELFPAY ==
--- NOTE | 2024-11-20 | DI.MAMMO_ITS ---
Exam(s) MAMMO SCREENING EXAM: MAMMO SCREENING CLINICAL HISTORY: Z76.89 Screening encountering health services other specified circumstances TECHNIQUE: Mammograms were interpreted according to the usual protocol including computer analysis w [facility] CAD system, tomosynthesis and C-view imaging. COMPARISON: 2015 through 2021 FINDINGS: The breasts are composed of mainly fatty density , Breast Density category A. No suspicious masses or suspicious microcalcifications are seen. No skin thickening or abnormal axillary lymph nodes are seen. There has been no significant change from prior exams. IMPRESSION: BI-RADS Category 1, Negative mammogram Yearly screening mammography is recommended. Breast Density - Category A, fatty density. A negative radiographic report should not delay biopsy if a dominant or clinically suspicious mass is present. Up to ten percent of cancers are not identified on mammography. A negative report may reinforce clinical impression. Adenosis and dense breasts may obscure an underlying neoplasm. False positive reports average 6 to 10%. Patient will receive a letter notifying them of these results.
== END 2024-11-20 01:45 ==
PROVIDERS: PCP Nurse Practitioner Family; Visit Provider Nurse Practitioner Family
DX: Z76.89 Persons encountering health services in other specified circumstances (principal); Z12.31 Encounter for screening mammogram for malignant neoplasm of breast; R92.313 Mammographic fatty tissue density, bilateral breasts
CPT/HCPCS: 77063; 77067

== ENCOUNTER 2025-08-09 07:16 | Emergency (ER) | payer OTHER, SELFPAY ==
[2025-08-09] VITALS (42 sets, daily range): BP systolic 96–170; BP diastolic 39–153; PULSE 60–80; RESP 9–20; TEMP 36.4; O2SAT 92–100
--- NOTE | 2025-08-09 07:30 | DI.CT_ITS ---
Exam(s) CT ABDOMEN PELVIS W EXAM: CT ABDOMEN PELVIS W CLINICAL HISTORY: llq abdominal pain. TECHNIQUE: Imaging Protocol: Axial computed tomography images with coronal and sagittal reformatted images were created and reviewed CONTRAST MATERIAL: Intravenous: Omnipaque-350 100cc Oral: None COMPARISON: No exams were available for comparison FINDINGS: VISUALIZED LUNG BASES: No nodules nor pleural effusions evident. ABDOMEN: There is a small amount of ascites in the pelvis. LIVER: There are no focal hepatic lesions evident. No dilated intrahepatic ducts. GALLBLADDER/BILIARY: No obvious gallbladder pathology. CBD is not dilated. PANCREAS: No evidence of pancreatic mass nor dilatation of the pancreatic duct. SPLEEN: Spleen is not enlarged. No obvious intrasplenic lesions. Splenic and portal veins are patent. ADRENALS: Right adrenal gland unremarkable. There is nodular thickening of the genu of the left adrenal gland measuring 1.6 by 1.3 cm. KIDNEYS:No cysts evident. No solid renal masses. No calculi nor hydronephrosis.. ABDOMINAL AORTA: Moderately atherosclerotic-calcified. Upper normal diameter. There are no aneurysm the the iliac arteries evident LYMPH NODES:There is no retroperitoneal nor paraaortic adenopathy. ABDOMINAL WALL: No evidence of significant anterior abdominal wall nor inguinal hernia. GI: There is abnormal circumferential mural thickening of a long segment of the left side of the colon and sigmoid. Wall thickness is 5-6 mm in the affected length of large bowel. There is also abnormal adjacent fat streaking in the sigmoid within the iliac fossa. There is a single diverticulum best seen on the sagittal images on the superior wall of the intrapelvic sigmoid with findings consistent with probable diverticulitis. There is surrounding fluid and fat streaking. No formed abscess. There is also an abnormal well-defined peripheral left iliac fossa fluid collection measuring 3.9 by 3.5 by 3.6 cm, exhibiting some peripheral calcification. This is probably incidental and a separate pathology from the adjacent large bowel abnormality. Does not have the appearance of a typical abscess PELVIS: GI: No evidence of appendicitis. Abnormal sigmoid as above. LYMPH NODES: There is no intrapelvic nor inguinal adenopathy. REPRODUCTIVE: Uterus exhibits normal size. No abnormal adnexal findings. URINARY BLADDER: No calculi nor obvious masses evident OSSEOUS: No fractures and no significant osseous lesions. Significant degenerative changes in the hips. SI joints unremarkable. There is posterior fusion hardware in the lower lumbar spine at the L4-5 levels with intra breast thickly screws bilaterally at these 2 levels. Mild anterolisthesis L4 upon L5. IMPRESSION: 1. There is a long segment of abnormal appearing large bowel involving most of the left side of the colon and the entire sigmoid which exhibits significant circumferential thickening of the wall along the entire length of the colon at this level, most probably related to chronic inflammatory bowel disease although cannot exclude lymphoma. 2. Superimposed upon the above are findings of what appears to be acute diverticulitis in the sigmoid. 3. There is a separate well-defined fluid collection thin in the lateral left side of the pelvis which measures 3.9 x 3.5 x 3.6 cm and exhibits some mild peripheral calcification. Internal density is fluid (3 HU). There is also some free fluid in both sides of the pelvis. 4. Some thickening of the genu of the left adrenal gland noted measuring 16 x 13 mm, consistent with probable small left adrenal nodule. Lumbar spine fusion hardware as above Or called by myself to ER physician on 08/09/2025 at 9:30 a.m. RADIATION DOSE DELIVERED: 812.26mGy.cm Total DLP DATA REPOSITORY: All CT scans at this facility are submitted to the National Radiology Data Registry (NRDR) Dose Index Registry (DIR) with the [employer] (ACR). RADIATION OPTIMIZATION: All CT scans at this facility use at least one of these dose optimization techniques: automated exposure control; mA and/or kV adjustment per patient size (includes targeted exams where dose is matched to clinical indication); or iterative reconstruction.
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
[2025-08-09 07:46] LABS: Abs Immature Grans 0.06 10^3/uL (0.0-0.06); HCT 39.0 % (36.0-46.0); HGB 13.3 g/dL (11.2-15.7); Immature Grans % 0.4 %; MCH 29.5 pg (27.0-33.0); MCHC 34.1 % (32.0-36.0); MCV 87 fL (80-95); MPV 11.1 fL (8.0-11.0); Platelet Count 390 10^3/uL (130-400); RBC 4.51 10^6/uL (3.93-5.22); RDW 13.6 % (11.7-14.6); RDW-SD 42.5 fL; WBC 15.09 10^3/uL (4.4-10.8)
[2025-08-09] MEDS: Ketorolac 15 MG/ML VIAL IVP (07:58)
[2025-08-09] MEDS: HYDROmorphone 2 MG/ML SYR IVP (07:58)
[2025-08-09 08:01] LABS: Magnesium 1.9 mg/dL (1.6-2.6)
[2025-08-09] MEDS: Normal Saline 1,000 ML 1000 ML IV (08:16)
[2025-08-09 08:30] LABS: ALT 15 U/L (10-49); AST 28 U/L (<34); Albumin 4.7 g/dL (3.2-5.0); Alkaline Phosphatase 63 U/L (46-116); Anion Gap 12.8 mmol/L (3-11); BUN 25 mg/dL (9-23); Bilirubin, Total 1.20 mg/dL (0.2-1.2); CO2 25.4 mmol/L (20.0-31.0); Calcium 10.2 mg/dL (8.3-10.6); Chloride 97 mmol/L (98-107); Glucose 111 mg/dL (74-106); Lipase 80 U/L (<53); Potassium 2.6 mmol/L (3.5-5.1); Sodium 135 mmol/L (136-145); Total Protein 8.1 g/dL (5.7-8.2)
[2025-08-09] MEDS: Normal Saline - Diluent 50 ML VIAL IJ (08:36)
[2025-08-09] MEDS: Omnipaque 350 MG/ML 100 ML BTL IJ (08:36)
[2025-08-09] MEDS: Normal Saline Flush 10 ML SYR IVP (08:36)
[2025-08-09] MEDS: POTASSIUM CHLORIDE 20 MEQ/100 ML BAG 50 MEQ IV_INF (09:24)
[2025-08-09] MEDS: Amoxicillin 875/Clav. 125 TAB PO (10:52)
[2025-08-09] MEDS: Potassium Chloride 20 MEQ TABCR 40 MEQ PO (10:53)
[2025-08-09] MEDS: HYDROmorphone 2 MG/ML SYR 1 MG IVP (11:10)
[2025-08-09 11:30] LABS: Potassium 3.9 mmol/L (3.5-5.1)
== END 2025-08-09 12:01 | disposition home or self-care (01) ==
PROVIDERS: Emergency Provider Emergency Medicine; PCP Nurse Practitioner Family
DX: K57.32 Diverticulitis of large intestine without perforation or abscess without bleeding (principal)
CPT/HCPCS: 99283; 99285; 36415; 96375; 96376; 80053; 83690; 96361; 96365; 96366; 74177; 83735; 84132; 85025; J1171; J1885; J3480; J3490

== ENCOUNTER 2025-08-15 08:43 | Observation (INO) | payer OTHER, SELFPAY ==
[2025-08-15] VITALS (46 sets, daily range): BP systolic 113–202; BP diastolic 31–112; PULSE 72–105; RESP 12–24; TEMP 37–37.1; O2SAT 94–100
--- NOTE | 2025-08-15 09:00 | RT.EKG_ITS ---
APPROVED REPORT Exam: Resting ECG Reason for Exam: weakness Patient Location: E HR:86 bpm ECG Measurements Heart Rate 86 AXIS AL 174 P 15 QRSd 110 QRS 15 QT 359 T -24 QTc 430 Conclusion Sinus rhythm...normal P axis, V-rate 60- 99 Physician: No STEMI
--- NOTE | 2025-08-15 09:05 | DI.CT_ITS ---
Exam(s) CT ABDOMEN PELVIS W EXAM: CT ABDOMEN PELVIS W CLINICAL HISTORY: worsening abd pain/divertic dx, diarrhea, vomiting. TECHNIQUE: Imaging Protocol: Axial computed tomography images with coronal and sagittal reformatted images were created and reviewed CONTRAST MATERIAL: Intravenous: Omnipaque-350 100cc Oral: None COMPARISON: CT CT ABDOMEN PELVIS W from 08/09/2025 FINDINGS: VISUALIZED LUNG BASES: No nodules nor pleural effusions evident. ABDOMEN: There is no ascites. LIVER: There are no focal hepatic lesions evident. No dilated intrahepatic ducts. GALLBLADDER/BILIARY: No obvious gallbladder pathology. CBD is not dilated. PANCREAS: No evidence of pancreatic mass nor dilatation of the pancreatic duct. SPLEEN: Spleen is not enlarged. No obvious intrasplenic lesions. Splenic and portal veins are patent. ADRENALS: Again noted is abnormal thickening of the genu of the left adrenal gland, measuring 16 x 13 mm, unchanged. Right adrenal gland unremarkable. KIDNEYS:No cysts evident. No solid renal masses. No calculi nor hydronephrosis.. ABDOMINAL AORTA: Calcified but not enlarged. Upper normal diameter. Iliac arteries calcified but not enlarged. LYMPH NODES:There is no retroperitoneal nor paraaortic adenopathy. ABDOMINAL WALL: No evidence of significant anterior abdominal wall nor inguinal hernia. GI: No evidence of small-bowel obstruction.. The previously described long circumferentially thickened length of the distal half of the descending less left colon and entire sigmoid are again noted. There is presently no free fluid in the most dependent aspect of the pelvis, as was previously present. There is no mural abscess. There is a diverticulum again noted on the superior wall of the sigmoid which exhibits some mild inflammation but appearing slightly improved when compared to the prior study. Also again noted is a previously described partially peripherally calcified well-defined fluid collection in the upper left iliac fossa adjacent to but separate from the sigmoid which measures 3.8 by 3.9 cm, similar to previous. PELVIS: GI: No evidence of appendicitis. There is no undigested pill noted in a small bowel loop in the right-side of the pelvis. LYMPH NODES: There is no intrapelvic nor inguinal adenopathy. REPRODUCTIVE: Age-appropriate URINARY BLADDER: There is no gas in the urinary bladder lumen to suggest fistulous communication from the sigmoid pathology. OSSEOUS: No fractures and no significant osseous lesions. Degenerative changes in both hips. Fusion hardware in the lumbar spine again noted at the L4-5 levels. Supported by bilateral intrapedicular screws at these 2 levels. IMPRESSION: 1. Compared to the prior CT scan of 08/09/2025 there is again noted circumferential colitis pattern through a long segment of the lower left colon and sigmoid. 2. There also again appears to be superimposed diverticulitis. There is no formed abscess and the amount of free fluid in the dependent aspect of the pelvis as significantly decreased. 3. The previously described separate well-defined fluid collection in the lateral left side of the upper pelvis which exhibits some peripheral calcification is unchanged. This has not increased or decreased in size. Report called by myself to ER 08/15/2025 11:02 a.m. RADIATION DOSE DELIVERED: 749.28mGy.cm Total DLP DATA REPOSITORY: All CT scans at this facility are submitted to the National Radiology Data Registry (NRDR) Dose Index Registry (DIR) with the [employer] (ACR). RADIATION OPTIMIZATION: All CT scans at this facility use at least one of these dose optimization techniques: automated exposure control; mA and/or kV adjustment per patient size (includes targeted exams where dose is matched to clinical indication); or iterative reconstruction.
[2025-08-15 09:25] LABS: Abs Immature Grans 0.34 10^3/uL (0.0-0.06); HCT 35.3 % (36.0-46.0); HGB 11.5 g/dL (11.2-15.7); Immature Grans % 3.2 %; MCH 28.5 pg (27.0-33.0); MCHC 32.6 % (32.0-36.0); MCV 88 fL (80-95); MPV 10.1 fL (8.0-11.0); Platelet Count 476 10^3/uL (130-400); RBC 4.03 10^6/uL (3.93-5.22); RDW 14.2 % (11.7-14.6); RDW-SD 45.4 fL; WBC 10.55 10^3/uL (4.4-10.8)
[2025-08-15 09:50] LABS: Lipase 26 U/L (<53)
[2025-08-15 09:52] LABS: Magnesium 1.7 mg/dL (1.6-2.6); Troponin I 4 ng/L (<35)
[2025-08-15] MEDS: Normal Saline 1,000 ML 1000 ML IV (09:52)
[2025-08-15 09:53] LABS: ALT 26 U/L (10-49); AST 25 U/L (<34); Albumin 4.4 g/dL (3.2-5.0); Alkaline Phosphatase 112 U/L (46-116); Anion Gap 10.7 mmol/L (3-11); BUN 10 mg/dL (9-23); Bilirubin, Total 0.6 mg/dL (0.2-1.2); CO2 25.3 mmol/L (20.0-31.0); Calcium 9.6 mg/dL (8.3-10.6); Chloride 102 mmol/L (98-107); Glucose 102 mg/dL (74-106); Potassium 3.5 mmol/L (3.5-5.1); Sodium 138 mmol/L (136-145); Total Protein 7.8 g/dL (5.7-8.2)
[2025-08-15] MEDS: LORazepam 2 MG/ML VIAL 0.5 MG IVP (09:53)
[2025-08-15] MEDS: Prochlorperazine 10 MG/2 ML VIAL 5 MG IVP (09:53)
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
[2025-08-15 10:19] LABS: COVID-19 PCR Negative (Negative); RSV PCR Negative (Negative)
[2025-08-15] MEDS: Omnipaque 350 MG/ML 100 ML BTL IJ (10:28)
[2025-08-15] MEDS: Normal Saline - Diluent 50 ML VIAL IJ (10:28)
[2025-08-15 11:19] LABS: Troponin I 3 ng/L (<35)
[2025-08-15] MEDS: ACETAMINOPHEN 500 MG/50 ML BAG 200 MG IVPB (11:24)
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
[2025-08-15] MEDS: CIPROFLOXACIN 400 MG/200 ML BAG 200 MG IVPB (12:16)
[2025-08-15] MEDS: metroNIDAZOLE 500 MG/100 ML BAG 100 MG IVPB ×2 (13:00→22:07)
--- NOTE | 2025-08-15 13:09 | W.PC.ACHO ---
Registration Status: REG ER Primary Language: Preferred Language: Icelandic ED Information & Data Chief Complaint Abd Prob 08/15/25 10:22 Triage Note Pt arrives to ED c/o 08/15/25 08:47 worsening LLQ abd pain. Pt was seen on 08/09/ and dx w/ diverticulitis. Pt endorses N/V/D. Pt has not been tested for C-DIFF but has been on Augmentin and was advised by her PCP to come to the ED. Medical / Surgical History (Last Reviewed 03/15/24 @ 08:36 by Robyn Cr RN) Closed fracture of ankle (08/05/91) Heart murmur Tobacco dependence in remission STEMI (ST elevation myocardial infarction) Chest pain STEMI (ST elevation myocardial infarction) Hypothyroidism Hx of hyperlipidemia HTN (hypertension) GERD (gastroesophageal reflux disease) Depression Anxiety (Last Reviewed 03/15/24 @ 08:36 by Robyn Cr RN) History of arthroscopy of knee History of bilateral ligation of fallopian tubes Status post total bilateral knee replacement Ligation of fallopian tube Replacement of total knee joint Thyroid (~1998) Spinal Fusion Procedures Broken Left Ankle Arthroplasty of knee (~2007) Most Recent Vital Signs Temperature 37 C 08/15/25 09:20 Temperature Source Temporal Artery Scan 08/15/25 09:20 Pulse 78 08/15/25 13:01 Pulse 84 08/15/25 13:01 Respiratory Rate 19 08/15/25 13:01 Blood Pressure 137/69 08/15/25 13:01 Blood Pressure Mean 93 08/15/25 13:01 Blood Pressure Position Sitting 08/15/25 09:20 Pulse Oximetry 100 08/15/25 12:46 Oxygen Delivery Method Room Air 08/15/25 09:20 Oxygen Flow Rate 0 08/15/25 09:20 Pain Level 5 08/15/25 09:20 Allergies loperamide Allergy (Unknown, Verified 08/15/25 13:07) SKIN RASH morphine Adverse Reaction (Mild, Verified 08/15/25 13:07) Other (See Comment) Itching G.DOMESTICUS DUST MITE Allergy (Unknown, Uncoded 08/15/25 13:07) cough Precautions Isolation Contact precaution 08/15/25 09:20 IV IV Catheter Type [Right Saline Lock Antecubital] IV Catheter Gauge [Right 18 Antecubital] Diet Orders Category Date Time Status npo [Nothing Per Oral] [DIET] Nutrition 08/15/25 12:34 Active Diagnostics 08/15/25 08/15/25 08/15/25 Range/Units 10:43 09:26 09:23 WBC (4.4-10.8) 10^3/uL RBC (3.93-5.22) 10^6/uL Hgb (11.2-15.7) g/dL Hct (36.0-46.0) % MCV (80-95) fL MCH (27.0-33.0) pg MCHC (32.0-36.0) % RDW (11.7-14.6) % Plt Count (130-400) 10^3/uL MPV (8.0-11.0) fL Immature Gran % % Neutrophils % % Lymphocytes % % Monocytes % % Eosinophils % % Basophils % % Nucleated RBC % (0.0-0.3) % Absolute Neutrophils (1.2-6.7) 10^3/uL Absolute Lymphocytes (1.2-3.4) 10^3/uL Absolute Monocytes (0.1-0.8) 10^3/uL Absolute Eosinophils (0.0-0.7) 10^3/uL Absolute Basophils (0.0-0.2) 10^3/uL VBG Lactate (<or=2.0) mmol/L Sodium (136-145) mmol/L Potassium (3.5-5.1) mmol/L Chloride (98-107) mmol/L Carbon Dioxide (20.0-31.0) mmol/L Anion Gap (3-11) mmol/L BUN (9-23) mg/dL Creatinine (0.55-1.02) mg/dL Est GFR (CKD-EPI 2020) (mL/min/1.73m2) Glucose (74-106) mg/dL Calcium (8.3-10.6) mg/dL Magnesium (1.6-2.6) mg/dL Total Bilirubin (0.2-1.2) mg/dL AST (<34) U/L ALT (10-49) U/L Alkaline Phosphatase (46-116) U/L Troponin I 3 (<35) ng/L Total Protein (5.7-8.2) g/dL Albumin (3.2-5.0) g/dL Lipase (<53) U/L Urine Color Pending Urine Clarity Pending Urine pH Pending Ur Specific Nephi Pending Urine Protein Pending Urine Ketones Pending Urine Blood Pending Urine Nitrite Pending Urine Bilirubin Pending Urine Urobilinogen Pending Ur Leukocyte Esterase Pending Urine Glucose Pending Stool Campylobacter PCR Pending Stl C.difficile Tox PCR Pending Stool Salmonella PCR Pending Stool Shigella PCR Pending COVID-19 Source Nasopharynx SARS-CoV-2 (PCR) Negative (Negative) Influenza Type A (PCR) Negative (Negative) Influenza Type B (PCR) Negative (Negative) RSV (PCR) Negative (Negative) Shiga Toxin (PCR) Pending 08/15/25 Range/Units 09:20 WBC 10.55 (4.4-10.8) 10^3/uL RBC 4.03 (3.93-5.22) 10^6/uL Hgb 11.5 (11.2-15.7) g/dL Hct 35.3 L (36.0-46.0) % MCV 88 (80-95) fL MCH 28.5 (27.0-33.0) pg MCHC 32.6 (32.0-36.0) % RDW 14.2 (11.7-14.6) % Plt Count 476 H (130-400) 10^3/uL MPV 10.1 (8.0-11.0) fL Immature Gran % 3.2 % Neutrophils % 57.7 % Lymphocytes % 25.5 % Monocytes % 11.0 % Eosinophils % 1.8 % Basophils % 0.8 % Nucleated RBC % 0.0 (0.0-0.3) % Absolute Neutrophils 6.09 (1.2-6.7) 10^3/uL Absolute Lymphocytes 2.69 (1.2-3.4) 10^3/uL Absolute Monocytes 1.16 H (0.1-0.8) 10^3/uL Absolute Eosinophils 0.19 (0.0-0.7) 10^3/uL Absolute Basophils 0.08 (0.0-0.2) 10^3/uL VBG Lactate 1.4 (<or=2.0) mmol/L Sodium 138 (136-145) mmol/L Potassium 3.5 (3.5-5.1) mmol/L Chloride 102 (98-107) mmol/L Carbon Dioxide 25.3 (20.0-31.0) mmol/L Anion Gap 10.7 (3-11) mmol/L BUN 10 (9-23) mg/dL Creatinine 0.78 (0.55-1.02) mg/dL Est GFR (CKD-EPI 2020) 74.09 (mL/min/1.73m2) Glucose 102 (74-106) mg/dL Calcium 9.6 (8.3-10.6) mg/dL Magnesium 1.7 (1.6-2.6) mg/dL Total Bilirubin 0.6 (0.2-1.2) mg/dL AST 25 (<34) U/L ALT 26 (10-49) U/L Alkaline Phosphatase 112 (46-116) U/L Troponin I 4 (<35) ng/L Total Protein 7.8 (5.7-8.2) g/dL Albumin 4.4 (3.2-5.0) g/dL Lipase 26 (<53) U/L Urine Color Urine Clarity Urine pH Ur Specific Nephi Urine Protein Urine Ketones Urine Blood Urine Nitrite Urine Bilirubin Urine Urobilinogen Ur Leukocyte Esterase Urine Glucose Stool Campylobacter PCR Stl C.difficile Tox PCR Stool Salmonella PCR Stool Shigella PCR COVID-19 Source SARS-CoV-2 (PCR) (Negative) Influenza Type A (PCR) (Negative) Influenza Type B (PCR) (Negative) RSV (PCR) (Negative) Shiga Toxin (PCR) 08/15/25 10:10 Blood Culture - Pending Blood 08/15/25 09:20 Blood Culture - Pending Blood Intake and Output - 24 Hour Total 08/15/25 08:43 thru 08/15/25 11:46 Intake Total 1060 Balance 1060 Weight 97.069 kg Intake: IV 1060 Falls Risk Assessment History of Falls No History 08/15/25 09:20 Contributing Factors Incontinence 08/15/25 09:20 Ambulatory Aids Independent 08/15/25 09:20 Tubes/Lines With any additional score 08/15/25 09:20 Gait Evaluation No gait disturbance 08/15/25 09:20 Cognition No cognitive impairment 08/15/25 09:20 Fall Total Score 23 08/15/25 09:20 Level of Risk Standard/Low Risk 08/15/25 09:20 Problems (Last Reviewed 03/15/24 @ 08:36 by Robyn Cr RN) Diarrhea (Acute) Nausea & vomiting (Acute) Obesity (BMI 30.0-34.9) (Acute) Diverticulitis (Chronic) Essential hypertension (Acute 06/13/12) Hyperlipidemia (Acute 06/13/12) Hypothyroidism (Acute) Attestation Statement: By documenting the first initial, last name, and credentials of the reporting nurse below, both parties acknowledge that all relevant information regarding the patient handoff has been communicated, and that all questions have been addressed to ensure continuity and safety of care. Additional Patient Information/Comments: Pt being admitted to floor for IV AB and GI symptom control. Pt will be placed in RM 206 and oriented to room Report Received From: INEZ Yo
--- NOTE | 2025-08-15 13:52 | PHA.REVIEW2 ---
Pharmacy Admission Review Admission Clinical Review Admission Pharmacy Review: Diarrhea (Acute) Nausea & vomiting (Acute) Obesity (BMI 30.0-34.9) (Acute) Essential hypertension (Acute 06/13/12) Hyperlipidemia (Acute 06/13/12) Hypothyroidism (Acute) loperamide Allergy (Unknown, Verified 08/15/25 13:07) SKIN RASH morphine Adverse Reaction (Mild, Verified 08/15/25 13:07) Other (See Comment) G.DOMESTICUS DUST MITE Allergy (Unknown, Uncoded 08/15/25 13:07) cough Resuscitation Status Full Code Height 5 ft 7 in Weight 97.069 kg Pharmacy Admission Review Renal Dosing Renal Dosing: BUN 10 mg/dL (9-23) 08/15/25 09:20 Creatinine 0.78 mg/dL (0.55-1.02) 08/15/25 09:20 Medications needing adjustments: Reviewed (CrCl 67.1 mL/min) List of meds needing interventions: Current medications are okay Anticoagulation Anticoagulation: Hgb 11.5 g/dL (11.2-15.7) 08/15/25 09:20 Hct 35.3 % (36.0-46.0) L 08/15/25 09:20 Plt Count 476 10^3/uL (130-400) H 08/15/25 09:20 Creatinine 0.78 mg/dL (0.55-1.02) 08/15/25 09:20 DVT Prophylaxis: Reviewed Medications: Enoxaparin (40mg daily) Opiate Usage Evaluate Pain Scale/Pains Meds: Reviewed (morphine IR 15mg PO q8h PRN - no doses given) Scheduled Bowel Reg ordered if on Opiates?: No Relevant Labs Relevant Labs: Sodium 138 mmol/L (136-145) 08/15/25 09:20 Potassium 3.5 mmol/L (3.5-5.1) 08/15/25 09:20 Chloride 102 mmol/L (98-107) 08/15/25 09:20 Magnesium 1.7 mg/dL (1.6-2.6) 08/15/25 09:20 Electrolytes, C-Reactive P, ESR: Reviewed Cardiac Review Cardiac Review: Troponin I 3 ng/L (<35) 08/15/25 10:43 BP, HR, EF%: Reviewed (HR and BP WNL) List meds needing interventions: Has order for metoprolol 25mg bid QTc Review QTc: Reviewed (EKG report from 08/15 pending) IV to PO Switch IV Medications: Reviewed (NPO at this time) Home Meds Home Med List reviewed: Intervened Relevent Home Meds Not ordered & why?: amoxicillin (failed outpatient therapy, now receiving IV antibiotics) and Zepbound (weekly) Asked nurse to verify patients losartan and HCTZ doses. On home med list as losartan/HCTZ 50/12.5mg tablet. Fill history shows patient has been getting losartan 100mg tablet daily and HCTZ 50mg tablet daily. Waiting to hear back. Current Meds Current Medication Order Review: Intervened Comments: Retimed levothyroxine from DAILY to DAILY@0600 per pharmacy protocol Retimed ceftriaxone and metronidazole orders to be on even hour per pharmacy protocol Added 2nd PRN to morphine and ondansetron orders 2 orders put in for acetaminophen. An as needed IV order and scheduled PO order. Asked provider if they wanted both of these. Provider canceled PO order. Pharmacy Antibiotic Review Relevant Labs: WBC 10.55 10^3/uL (4.4-10.8) 08/15/25 09:20 Temperature 37 C Temperature 37 C Pharmacy Antibiotic Activity: C/S review and Reviewed, no change Comments: Patient is on ceftriaxone and metronidazole, day 1, for diverticulitis. Stool sample pending for C. diff and blood cultures pending.
[2025-08-15] MEDS: cefTRIAXone 2 GM/50 ML BAG IVPB (14:20)
[2025-08-15 16:42] LABS: Glucose Negative (Negative)
[2025-08-15 17:14] LABS: EPI 027-NAP1-B1 PRESUMPTIVE NEGATIVE
[2025-08-15] MEDS: Lactated Ringers 1,000 ML 125 ML IV (18:35)
[2025-08-15] MEDS: Potassium Chloride 20 MEQ TABCR PO (19:56)
[2025-08-15] MEDS: Metoprolol 12.5 MG TAB 25 MG PO (19:56)
[2025-08-15] MEDS: Melatonin 3 MG TAB 9 MG PO (19:56)
[2025-08-15] MEDS: Naproxen 375 MG TAB PO (19:56)
[2025-08-16] MEDS: Lactated Ringers 1,000 ML 125 ML IV (02:55)
[2025-08-16] MEDS: Levothyroxine 75 MCG TAB PO (05:47)
[2025-08-16] MEDS: metroNIDAZOLE 500 MG/100 ML BAG 100 MG IVPB ×2 (05:48→13:06)
[2025-08-16 06:13] VITALS: BP 138/64; PULSE 79; TEMP 36.5; O2SAT 98
[2025-08-16 07:03] LABS: Magnesium 1.7 mg/dL (1.6-2.6)
[2025-08-16 07:05] LABS: Anion Gap 10.1 mmol/L (3-11); BUN 8 mg/dL (9-23); CO2 24.9 mmol/L (20.0-31.0); Calcium 9.0 mg/dL (8.3-10.6); Chloride 106 mmol/L (98-107); Glucose 82 mg/dL (74-106); Potassium 3.8 mmol/L (3.5-5.1); Sodium 141 mmol/L (136-145)
[2025-08-16 07:46] LABS: Abs Immature Grans 0.32 10^3/uL (0.0-0.06); HCT 32.2 % (36.0-46.0); HGB 10.6 g/dL (11.2-15.7); Immature Grans % 3.9 %; MCH 29.1 pg (27.0-33.0); MCHC 32.9 % (32.0-36.0); MCV 89 fL (80-95); MPV 10.5 fL (8.0-11.0); Platelet Count 451 10^3/uL (130-400); RBC 3.64 10^6/uL (3.93-5.22); RDW 14.5 % (11.7-14.6); RDW-SD 46.8 fL; WBC 8.22 10^3/uL (4.4-10.8)
[2025-08-16] MEDS: Ondansetron 4 MG/2 ML VIAL IVP (07:46)
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
[2025-08-16] MEDS: Naproxen 375 MG TAB PO (08:34)
[2025-08-16] MEDS: Metoprolol 12.5 MG TAB 25 MG PO (08:34)
[2025-08-16] MEDS: Aspirin 325 MG TAB PO (08:35)
[2025-08-16] MEDS: hydroCHLOROthiazide 25 MG TAB 50 MG PO (08:35)
[2025-08-16] MEDS: Potassium Chloride 20 MEQ TABCR PO (08:35)
[2025-08-16] MEDS: Losartan 50 MG TAB 100 MG PO (08:35)
[2025-08-16] MEDS: Multivitamin TAB 1 TAB PO (08:36)
[2025-08-16] MEDS: Enoxaparin 40 MG/0.4 ML SYR SC (08:36)
[2025-08-16] MEDS: Sertraline 100 MG TAB PO (08:36)
[2025-08-16] MEDS: Pantoprazole 40 MG VIAL IVP (08:36)
[2025-08-16] MEDS: Normal Saline Flush 10 ML SYR (08:37)
[2025-08-16 11:33] LABS: Campylobacter PCR Negative (Negative); Shiga Toxin PCR Negative (Negative); Shigella/Enteroinvasive Ecoli Negative (Negative)
[2025-08-16] MEDS: ACETAMINOPHEN 1,000 MG/100 ML BAG 400 MG IVPB (12:07)
[2025-08-16] MEDS: Normal Saline Flush 10 ML SYR IVP ×3 (12:24→14:41)
[2025-08-16] MEDS: cefTRIAXone 2 GM/50 ML BAG IVPB (14:05)
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
--- NOTE | 2025-08-16 15:03 | CHAPLAIN ---
Ness was sitting up in bed when I visited. Her [place] was with her. Ness was pleasant and said she's doing fine. I explained my role and offered support.
[2025-08-16] MEDS: Ondansetron O.D.T. 4 MG TABEF PO (15:55)
--- NOTE | 2025-08-16 16:28 | PDOC.CMDIS ---
Date of service: 08/16/25 Time of Service: 16:28 LACE Index Scoring Tool Questions: Length of Stay (in days): 1 Was the patient admitted via the E.D.?: Yes E.D. Visits: 2 Answers: Total Score: 6 Risk of Readmission: Low Risk Care Management Discharge Plan Reason for Hospitalization: Diverticulitis Discharge Plan: Ness is discharged home via private vehicle with her . She will follow up with community providers and continue per her discharge plan of care. No new services are indicated. Patient/Family Education Needs: Review discharge instructions and plan for outpatient follow up. Discuss ask me three.
== END 2025-08-16 16:34 | disposition home or self-care (01) ==
LOC: ER 12:37 → MS 13:15
PROVIDERS: Admitting Provider Family Medicine; Emergency Provider Physician Assistant; PCP Nurse Practitioner Family; Responsible Provider Nurse Practitioner Acute Care; Visit Provider Family Medicine
DX: K57.32 Diverticulitis of large intestine without perforation or abscess without bleeding (principal); R19.7 Diarrhea, unspecified; R11.2 Nausea with vomiting, unspecified; I10 Essential (primary) hypertension; E78.5 Hyperlipidemia, unspecified; E66.811 Obesity, class 1; K21.9 Gastro-esophageal reflux disease without esophagitis; I25.2 Old myocardial infarction; Z79.899 Other long term (current) drug therapy; R25.1 Tremor, unspecified; F41.8 Other specified anxiety disorders; E89.0 Postprocedural hypothyroidism; Z96.653 Presence of artificial knee joint, bilateral; Z68.33 Body mass index [BMI] 33.0-33.9, adult
CPT/HCPCS: 00123; 36415; 80048; 80053; 83690; 87040; 87505; 87637; 93005; 96361; 96365; 96367; 96375; 99285; J1650; 74177; 81003; 83605; 83735; 84484; 85025; 93010; 99223; 99239; G0378; J0131; J0696; J0744; J0780; J1836; J2060; J2405; J2470; J3490

== ENCOUNTER 2025-08-20 10:04 | Outpatient (CLI) | payer OTHER, SELFPAY ==
[2025-08-20 09:29] LABS: Abs Immature Grans 0.09 10^3/uL (0.0-0.06); HCT 35.4 % (36.0-46.0); HGB 11.8 g/dL (11.2-15.7); Immature Grans % 1.0 %; MCH 29.6 pg (27.0-33.0); MCHC 33.3 % (32.0-36.0); MCV 89 fL (80-95); MPV 9.7 fL (8.0-11.0); Platelet Count 577 10^3/uL (130-400); RBC 3.98 10^6/uL (3.93-5.22); RDW 14.7 % (11.7-14.6); RDW-SD 47.4 fL; WBC 8.88 10^3/uL (4.4-10.8)
[2025-08-20 10:30] LABS: Anion Gap 12.7 mmol/L (3-11); BUN 10 mg/dL (9-23); CO2 23.3 mmol/L (20.0-31.0); Calcium 9.2 mg/dL (8.3-10.6); Chloride 102 mmol/L (98-107); Glucose 113 mg/dL (74-106); Potassium 3.5 mmol/L (3.5-5.1); Sodium 138 mmol/L (136-145)
== END 2025-08-20 10:05 | disposition home or self-care (01) ==
LOC: LBO 10:05
PROVIDERS: PCP Nurse Practitioner Family; Visit Provider Nurse Practitioner Acute Care
DX: R11.2 Nausea with vomiting, unspecified (principal); R19.7 Diarrhea, unspecified; K57.92 Diverticulitis of intestine, part unspecified, without perforation or abscess without bleeding
CPT/HCPCS: 36415; 80048; 85025